=== PATIENT | female | born 1945 ===

== ENCOUNTER 2016-07-24 14:01 | Emergency (ER) | payer MEDICARE, OTHER ==
[2016-07-24 14:01] VITALS: BMI 27.3
[2016-07-24 16:01] LABS: ALB/GLOB RATIO 1.1 (1.0-2.1); ALKALINE PHOSPHATASE 97 U/L (38-126); ALT/SGPT 27 U/L (9-52); AST/SGOT 19 U/L (14-36); BILIRUBIN,TOTAL 0.2 mg/dl (0.2-1.3); BLOOD UREA NITROGEN 12 mg/dl (7-17); CALCIUM 9.9 mg/dL (8.4-10.2); CARBON DIOXIDE 28 mmol/L (22-30); CHLORIDE 105 mmol/L (98-107); GFR AFRICAN-AMERICAN > 60; GLUCOSE,RANDOM 102 mg/dL (65-105); POTASSIUM 4.5 MMOL/L (3.6-5.0); SODIUM 147 mmol/l (132-148)
[2016-07-24 16:11] LABS: BASO % 0.3 % (0.0-2.0); EOS # 0.1 K/uL (0.0-0.7); EOS % 1.2 % (0.0-4.0); HEMATOCRIT 41.6 % (34.0-47.0); LYMPH # 3.4 K/uL (1.0-4.3); LYMPH % 44.8 % (20.0-40.0); MEAN CELL VOLUME 80.6 fl (81.0-99.0); MEAN CORPUSCULAR HEMOGLOBIN 26.3 pg (27.0-31.0); MEAN CORPUSCULAR HGB CONC 32.6 g/dL (33.0-37.0); MEAN PLATELET VOLUME 8.7 fl (7.2-11.7); MONO # 0.8 K/uL (0.0-0.8); MONO % 10.8 % (0.0-10.0); NEUT # 3.3 K/uL (1.8-7.0); NEUT % 42.9 % (50.0-75.0); NRBC % 0.1 % (0.0-0.0); RED CELL DISTRIBUTION WIDTH 15.8 % (11.5-14.5); WHITE BLOOD COUNT 7.6 K/uL (4.8-10.8)
--- NOTE | 2016-07-24 16:26 | ED PDOC ---
HPI: General Adult Time Seen by Provider: 07/24/16 14:39 Chief Complaint (Nursing): Lower Extremity Problem/Injury Chief Complaint (Provider): Numbness and pain History Per: Patient Additional Complaint(s): Pt. states for the past 4-5 months she's had a "stinging like pain" on all 4 extremities. Reports pain is worse when she goes to sleep at night and seems to improve when she moves. States that symptoms have been going on since she's been on Augmentin and Flagyl for a liver abscess. Pt. states that she was instructed to f/u with a neurologist by her PMD but appointment is not until 2016. Pt. states she discontinued her antibiotics last week due to the pain. Denies fever, abdominal pain, hx of anemia, weakness. Past Medical History Reviewed: Historical Data, Nursing Documentation, Vital Signs Vital Signs: Last Vital Signs Temp 98.2 F 07/24/16 14:09 Pulse 81 07/24/16 14:09 Resp 16 07/24/16 14:09 BP 143/77 07/24/16 14:09 Pulse Ox 99 07/24/16 16:27 - Medical History PMH: Anemia, Hypothyroidism, Pneumonia Denies: HIV, Chronic Kidney Disease - Surgical History Surgical History: Tonsillectomy - Family History Family History: States: No Known Family Hx - Home Medications Home Medications: Ambulatory Orders Medication Instructions Recorded Amoxicillin/Clavulanate [Augmentin 1 tab PO BID #20 tab 04/06/16 875 MG-125 MG] Ferrous Sulfate [Feosol] 325 mg PO BID #0 tab 04/06/16 Levothyroxine [Synthroid] 88 mcg PO DAILY #0 tab 04/06/16 Metronidazole [Flagyl] 500 mg PO TID #30 tablet 04/06/16 Tramadol HCl [Ultram] 50 mg PO BID PRN #30 tablet 07/24/16 - Allergies Allergies/Adverse Reactions: Allergies Allergy/AdvReac Type Severity Reaction Status Date / Time iodine Allergy SHORTNESS Verified 03/23/16 06:48 OF BREATH aspirin Allergy NAUSEA Uncoded 03/23/16 06:49 Review of Systems ROS Statement: Except As Marked, All Systems Reviewed And Found Negative Physical Exam - Physical Exam Appears: Positive for: Well, Non-toxic, No Acute Distress Skin: Positive for: Normal Color, Warm. Negative for: Rash Eye Exam: Positive for: EOMI, Normal appearance, PERRL Pulses-Dorsalis Pedis (L): 2+ Pulses-Dorsalis Pedis (R): 2+ Pulses-Radial (L): 2+ Pulses-Radial (R): 2+ Extremity: Positive for: Normal ROM DTR - Bicep (R): 2+ DTR - Bicep (L): 2+ DTR - Tricep (R): 2+ DTR - Tricep (L): 2+ DTR - Knee (R): 2+ DTR - Knee (L): 2+ DTR - Ankle (R): 2+ DTR - Ankle (L): 2+ Neurologic/Psych: Positive for: Alert, Oriented. Negative for: Aphasia, Facial Droop - Laboratory Results Result Diagrams: 07/24/16 15:45 07/24/16 15:45 - ECG O2 Sat by Pulse Oximetry: 99 - Progress ED Course And Treament: Pt. instructed to f/u with neurologist as previously scheduled. Pt. informed that this is likely due to a side effect of the flagyl. Disposition - Clinical Impression Clinical Impression: Peripheral neuropathy - Patient ED Disposition Is Patient to be Admitted: No - Disposition Disposition: Routine/Home Disposition Time: 18:03 Condition: STABLE Prescriptions: Tramadol HCl [Ultram] 50 mg PO BID PRN #30 tablet PRN Reason: Other Instructions: Peripheral Neuropathy (ED)
[2016-07-24 18:16] VITALS: BP 128/78; PULSE 78; RESP 20; TEMP 97.6; O2SAT 98
== END 2016-07-24 18:16 | disposition home or self-care (01) ==
LOC: H.ER 14:01
DX: G62.9 Polyneuropathy, unspecified (principal)

== ENCOUNTER 2017-06-22 22:14 | Emergency (ER) | payer MEDICARE, OTHER ==
[2017-06-22 22:14] VITALS: BMI 27.3
[2017-06-22 23:39] VITALS: RESP 17
[2017-06-23] MEDS ORDERED: Lidocaine 1% (10 ml) Inj INFIL STA (01:22)
[2017-06-23] MEDS ORDERED: Lidocaine 1% Inj (20ml) ONE (01:37)
--- NOTE | 2017-06-23 02:45 | ED PDOC ---
HPI: General Adult Time Seen by Provider: 06/23/17 01:02 Chief Complaint (Nursing): Trauma Chief Complaint (Provider): Facial laceration, trip and fall History Per: Patient History/Exam Limitations: no limitations Onset/Duration Of Symptoms: Days Have you had recent travel within the past 21 days to any of the following countries: [place], [place], [place] or [place]?: No Current Symptoms Are (Timing): Still Present Additional Complaint(s): 72 yo female presents after a trip and fall. Pt states she tripped on uneven pavement [employer]. Pt states she hit the upper lip on the ground. No dizziness, headache, chest pain or SOB before or after the fall. PT denies other complaints. Past Medical History Reviewed: Historical Data, Nursing Documentation, Vital Signs Vital Signs: Last Vital Signs Temp 98.8 F 06/22/17 23:36 Pulse 85 06/22/17 23:36 Resp 17 06/22/17 23:36 BP 179/88 H 06/22/17 23:36 Pulse Ox 97 06/22/17 23:36 - Medical History PMH: Anemia, Hypothyroidism, Pneumonia Denies: HIV, Chronic Kidney Disease - Surgical History Surgical History: Tonsillectomy - Family History Family History: States: Unknown Family Hx - Home Medications Home Medications: Ambulatory Orders Medication Instructions Recorded Amoxicillin/Clavulanate [Augmentin 1 tab PO BID #20 tab 04/06/16 875 MG-125 MG] Ferrous Sulfate [Feosol] 325 mg PO BID #0 tab 04/06/16 Levothyroxine [Synthroid] 88 mcg PO DAILY #0 tab 04/06/16 Metronidazole [Flagyl] 500 mg PO TID #30 tablet 04/06/16 Tramadol HCl [Ultram] 50 mg PO BID PRN #30 tablet 07/24/16 - Allergies Allergies/Adverse Reactions: Allergies Allergy/AdvReac Type Severity Reaction Status Date / Time iodine Allergy SHORTNESS Verified 03/23/16 06:48 OF BREATH aspirin Allergy NAUSEA Uncoded 03/23/16 06:49 Review of Systems ROS Statement: Except As Marked, All Systems Reviewed And Found Negative Cardiovascular: Negative for: Chest Pain, Light Headedness Respiratory: Negative for: Cough, Shortness of Breath Gastrointestinal: Negative for: Nausea, Vomiting Skin: Positive for: Other (Laceration between nose and upper lips) Physical Exam - Reviewed Nursing Documentation Reviewed: Yes Vital Signs Reviewed: Yes - Physical Exam Appears: Positive for: Well, Non-toxic, No Acute Distress Head Exam: Positive for: ATRAUMATIC, NORMAL INSPECTION, NORMOCEPHALIC Skin: Positive for: Warm. Negative for: Normal Color (Laceration between nose and upper lips, approx 2 cm, jagged/irregular) Eye Exam: Positive for: Normal appearance, EOMI, PERRL ENT: Positive for: Normal ENT Inspection Neck: Positive for: Normal, Painless ROM Cardiovascular/Chest: Positive for: Regular Rate, Rhythm Respiratory: Positive for: CNT, Normal Breath Sounds Gastrointestinal/Abdominal: Positive for: Normal Exam, Bowel Sounds, Soft Back: Positive for: Normal Inspection Extremity: Positive for: Normal ROM Neurologic/Psych: Positive for: Alert, Oriented - ECG O2 Sat by Pulse Oximetry: 97 Medical Decision Making Medical Decision Making: Pt thinks she had tetanus less than 5 years [employer]. Pt states she will call Dr. Coleman tomorrow to ask him. Pt is not taking any blood thinners. Procedures - Laceration/Wound Repair Facial laceration Wound Length (cm): 2 Wound's Depth, Shape: superficial, irregular Anesthesia: 1% Lidocaine (1cc) Wound Repaired With: Sutures Suture Size/Type: 6:0 (Vicryl, #4) Wound Complexity: Simple Disposition - Clinical Impression Clinical Impression: Head injury, Facial laceration - Patient ED Disposition Is Patient to be Admitted: No Counseled Patient/Family Regarding: Diagnosis, Need For Followup - Disposition Referrals: Eder Coleman MD [Primary Care Provider] - Disposition: Routine/Home Disposition Time: 02:46 Condition: GOOD Additional Instructions: Do not get wet for 24-48 hours. Keep clean and dry with antibiotic ointment twice a day. Once sutured absorb - Vitamin E at night (gel capsules) and sunscreen or lotion with SPF during the day. Please call Dr. Coleman regarding tetanus vaccine. Instructions: Care For Your Absorbable Stitches (ED)
[2017-06-23 03:24] VITALS: BP 159/86; PULSE 83; TEMP 98.4; O2SAT 98
== END 2017-06-23 03:11 | disposition home or self-care (01) ==
LOC: H.ER 22:14
DX: S09.90XA Unspecified injury of head, initial encounter (principal); S01.511A Laceration without foreign body of lip, initial encounter; W01.0XXA Fall on same level from slipping, tripping and stumbling without subsequent striking against object, initial encounter; Y92.9 Unspecified place or not applicable